=== PATIENT | female | born 1985 | race Hispanic/Latino ===

== ENCOUNTER 2017-07-10 12:38 | Emergency (ER) | payer OTHER ==
[2017-07-10 12:42] VITALS: O2SAT 100
--- NOTE | 2017-07-10 13:04 | ED PDOC ---
HPI: General Adult Time Seen by Provider: 07/10/17 12:49 Chief Complaint (Nursing): Palpitations Chief Complaint (Provider): Palpitations History Per: Patient History/Exam Limitations: no limitations Onset/Duration Of Symptoms: Hrs Additional Complaint(s): Patient is a 32 y/o female with no significant past medical history presenting to the emergency department for anxiety with associated jitters, palpitations , dizziness, nausea, and shortness of breath since this morning while working out in a gym. Reports that she took Hydroxycut for the first time in a long time, and then two hours into her workout on the treadmill, she felt like she was going to pass out with associated numbness in her hands and palpitations. Notes that she did not have breakfast this morning. Denies fever, abdominal pain , vomiting, or any other complaints. Her last normal menstrual period was one week ago. PCP: none provided. Past Medical History Reviewed: Historical Data, Nursing Documentation, Vital Signs Vital Signs: Last Vital Signs Temp 98.0 F 07/10/17 13:32 Pulse 86 07/10/17 15:25 Resp 16 07/10/17 13:32 BP 133/76 07/10/17 13:32 Pulse Ox 100 07/10/17 15:25 - Medical History PMH: No Chronic Diseases - Surgical History Surgical History: No Surg Hx - Family History Family History: States: Unknown Family Hx - Social History Ex-Smoker (has not smoked in the last 12 months): No - Allergies Allergies/Adverse Reactions: Allergies Allergy/AdvReac Type Severity Reaction Status Date / Time No Known Allergies Allergy Verified 07/10/17 12:39 Review of Systems ROS Statement: Except As Marked, All Systems Reviewed And Found Negative Constitutional: Negative for: Fever Cardiovascular: Positive for: Palpitations Respiratory: Positive for: Shortness of Breath, Pleuritic Pain Gastrointestinal: Positive for: Nausea. Negative for: Vomiting, Abdominal Pain Neurological: Positive for: Dizziness Psych: Positive for: Anxiety Physical Exam - Reviewed Nursing Documentation Reviewed: Yes Vital Signs Reviewed: Yes - Physical Exam Appears: Positive for: Well, Non-toxic, No Acute Distress Head Exam: Positive for: ATRAUMATIC, NORMAL INSPECTION, NORMOCEPHALIC Skin: Positive for: Normal Color, Warm, Dry Eye Exam: Positive for: Normal appearance ENT: Positive for: Normal ENT Inspection Neck: Positive for: Normal, Painless ROM Cardiovascular/Chest: Positive for: Regular Rate, Rhythm, Chest Non Tender. Negative for: Murmur Respiratory: Positive for: Normal Breath Sounds. Negative for: Accessory Muscle Use, Respiratory Distress Extremity: Positive for: Normal ROM Neurologic/Psych: Positive for: Alert, Oriented (x3), Mood/Affect (anxious, tremulous), Gait (steady) - Laboratory Results Result Diagrams: 07/10/17 13:34 07/10/17 13:34 - ECG ECG Rhythm: Positive for: Normal QRS, Normal ST Segment Rate: 86 O2 Sat by Pulse Oximetry: 100 (RA) Pulse Ox Interpretation: Normal Medical Decision Making Medical Decision Making: Time: 13:09 Initial impression: Anxiety Initial plan: Labs ED Urine Chest X-ray Normal Saline 500 mL Insurance Account Specialist IV Insertion Urinalysis EKG 13:15 Patient reports feeling better from the IV fluids and Ativan. 13:58 Labs reviewed, mild hypokalemia On re-evaluation, patient reports feeling nauseous and vomited. Will give Zofran and additional IV fluids. 15:23 On re-evaluation, patient reports feeling better. She has no fever and in no distress. VS stable. She was able to tolerate fluids. Denies any chest pain or SOB. Symptoms likely related to meds or anxiety reaction. Recommend rest, fluids and to follow up with PCP ~ Scribe Attestation: Documented by Mercedes Nobles, acting as a scribe for AMARI Holliday. Provider Scribe Attestation: All medical record entries made by the Scribe were at my direction and personally dictated by me. I have reviewed the chart and agree that the record accurately reflects my personal performance of the history, physical exam, medical decision making, and the department course for this patient. I have also personally directed, reviewed, and agree with the discharge instructions and disposition. Disposition - Clinical Impression Clinical Impression: Palpitations, Caffeine adverse reaction Counseled Patient/Family Regarding: Diagnosis, Need For Followup - Disposition Disposition: Routine/Home Disposition Time: 15:24 Condition: IMPROVED Additional Instructions: Please rest and drink fluids. Avoid caffeine for the next 48 hours. Follow up with your primary medical doctor or clinic in 2-5 days for further evaluation. Return to the emergency department at any time if symptoms persist or worsen. Instructions: Palpitations (ED), Caffeine Use (ED) Forms: [employer] ([place])
[2017-07-10] MEDS ORDERED: Sodium Chloride 0.9% 500 ML IV ONE (13:05)
[2017-07-10 13:37] VITALS: TEMP 98
[2017-07-10 13:40] LABS: BASO # 0.1 K/uL (0.0-0.2); BASO % 0.7 % (0.0-2.0); EOS % 0.2 % (0.0-4.0); HEMATOCRIT 37.3 % (34.0-47.0); LYMPH # 0.9 K/uL (1.0-4.3); LYMPH % 9.8 % (20.0-40.0); MEAN CELL VOLUME 88.1 fl (81.0-99.0); MEAN CORPUSCULAR HEMOGLOBIN 29.9 pg (27.0-31.0); MEAN PLATELET VOLUME 8.1 fl (7.2-11.7); MONO # 0.5 K/uL (0.0-0.8); MONO % 5.7 % (0.0-10.0); NEUT # 7.4 K/uL (1.8-7.0); NEUT % 83.6 % (50.0-75.0); NRBC % 0.1 % (0.0-0.0); PLATELET COUNT 198 K/uL (130-400); RED CELL DISTRIBUTION WIDTH 15.4 % (11.5-14.5); WHITE BLOOD COUNT 8.9 K/uL (4.8-10.8)
[2017-07-10 13:49] LABS: ALB/GLOB RATIO 1.4 (1.0-2.1); ALKALINE PHOSPHATASE 45 U/L (38-126); ALT/SGPT 78 U/L (9-52); AST/SGOT 73 U/L (14-36); BILIRUBIN,TOTAL 0.4 mg/dl (0.2-1.3); BLOOD UREA NITROGEN 14 mg/dl (7-17); CALCIUM 8.9 mg/dL (8.4-10.2); CARBON DIOXIDE 24 mmol/L (22-30); CHLORIDE 104 mmol/L (98-107); GFR AFRICAN-AMERICAN > 60; GLUCOSE,RANDOM 96 mg/dL (65-105); POTASSIUM 3.3 MMOL/L (3.6-5.0); SODIUM 142 mmol/l (132-148); TOTAL PROTEIN 8.3 G/DL (6.3-8.2)
[2017-07-10] MEDS ORDERED: Sodium Chloride 0.9% 1,000 ML IV SCH (14:00)
[2017-07-10 14:14] LABS: NEUTROPHIL 81 % (42-75); TOTAL CELLS COUNTED 100
[2017-07-10 14:16] LABS: LARGE PLATELETS PRESENT
[2017-07-10 15:07] LABS: URINE BACTERIA RARE (<OCC); URINE BILIRUBIN NEGATIVE (NEGATIVE); URINE BLOOD NEGATIVE (NEGATIVE); URINE COLOR YELLOW (YELLOW); URINE GLUCOSE (UA) NEG (Normal); URINE KETONE 20 mg/dL (NEGATIVE); URINE LEUKOCYTE ESTERASE NEG Leu/uL (Negative); URINE PROTEIN 100 mg/dL (NEGATIVE); URINE UROBILINOGEN 0.2-1.0 mg/dL (0.2-1.0); WBC URINE 1 /hpf (0-5)
[2017-07-10 15:56] VITALS: BP 132/76; PULSE 100; RESP 18
[2017-07-10 16:02] LABS: RBC URINE 2 /hpf (0-3)
--- NOTE | 2017-07-10 16:13 | RAD ---
HISTORY: Anxiety, unspecified pain. COMPARISON: No prior. TECHNIQUE: Chest PA and lateral FINDINGS: LUNGS: No active pulmonary disease. PLEURA: No significant pleural effusion identified. No pneumothorax apparent. CARDIOVASCULAR: Normal. OSSEOUS STRUCTURES: No significant abnormalities. VISUALIZED UPPER ABDOMEN: Normal. OTHER FINDINGS: None. IMPRESSION: No active disease. Please note: No preliminary interpretation of this examination rendered by emergency department personnel.
--- NOTE | 2017-07-10 21:22 | CARD ---
APPROVED REPORT EKG Measurement Heart [id number] <Conclusion> Normal sinus rhythm Normal ECG
== END 2017-07-10 16:35 | disposition home or self-care (01) ==
LOC: H.ER 12:38
DX: E87.6 Hypokalemia (principal); F41.9 Anxiety disorder, unspecified
CPT/HCPCS: 71020; 80053; 81003; 81025; 82550; 82553; 85025; 93005; 96374; 99285; J2405; J7040